=== PATIENT | female | born 1950 | race Two or more races ===

== ENCOUNTER 2025-02-22 06:50 | Day surgery (SDC) | payer OTHER ==
[~2025-02-22 06:50] MED LIST: SIMVASTATIN40 MG
[2025-02-22] MEDS ORDERED: fentaNYL CITRATE 50 MCG/ML AMPUL IV ONE (12:45)
[2025-02-22] MEDS ORDERED: DIPHENHYDRAMINE HCL 50 MG/ML VIAL 1ML IV ONE (12:45)
[2025-02-22] MEDS ORDERED: MIDAZOLAM HCL 2 MG/2 ML VIAL IV ONE (12:45)
== END 2025-02-22 13:15 | disposition home or self-care (01) ==
LOC: AMB-ENDOS 06:50 → CIR.AMB 06:50 → AMB-ENDOS 13:15 → CIR.AMB 14:00
PROVIDERS: ATTEND Surgery
DX: C18.6 Malignant neoplasm of descending colon (principal); K63.5 Polyp of colon; K57.30 Diverticulosis of large intestine without perforation or abscess without bleeding; K64.4 Residual hemorrhoidal skin tags; D12.2 Benign neoplasm of ascending colon

== ENCOUNTER 2025-03-13 09:49 | Outpatient (CLI) | payer OTHER ==
[~2025-03-13 09:49] MED LIST changes: -SIMVASTATIN40 MG; +SIMVASTATIN40 MG PO
== END 2025-03-13 09:54 | disposition home or self-care (01) ==
LOC: RAD 09:49
PROVIDERS: ATTEND Surgery
DX: C18.6 Malignant neoplasm of descending colon (principal); D12.2 Benign neoplasm of ascending colon; K63.5 Polyp of colon

== ENCOUNTER 2025-03-14 08:58 | Inpatient (IN) | payer OTHER ==
[~2025-03-14] VITALS: Ht 167.6 cm; Wt 65.3 kg
[2025-03-16] MEDS ORDERED: ONDANSETRON HCL 2 MG/ML VIAL IV ONE (02:55)
[2025-03-16] MEDS ORDERED: CEFTRIAXONE SODIUM 2,000 MG VIAL IV ONE (09:00)
[2025-03-16] MEDS ORDERED: METRONIDAZOLE/SODIUM CHLORIDE 500 MG/100 ML PIGGYBACK IV ONE (09:00)
[2025-03-16] MEDS ORDERED: LIDOCAINE HCL 1%/EPINEPHRINE 20ML VIAL IJ ONE (09:00)
[2025-03-16] MEDS ORDERED: BUPIVACAINE HCL/PF 0.25% 30ML VIAL InF ONE (09:00)
[2025-03-16] MEDS ORDERED: SUGAMMADEX SODIUM 200 MG/2 ML VIAL IV ONE (10:36)
[2025-03-16] MEDS ORDERED: LACTOBACILLUS ACIDOPHILUS 1 CAP CAP PO SCH (13:22)
[2025-03-16] MEDS ORDERED: TAMSULOSIN HCL 0.4 MG CAP PO SCH (13:22)
[2025-03-16] MEDS ORDERED: OxyCODONE HCL 5 MG TABLET (ROXICODONE) PO PRN (13:30)
[2025-03-16] MEDS ORDERED: ONDANSETRON HCL 2 MG/ML VIAL IV PRN (13:30)
[2025-03-16] MEDS ORDERED: MORPHINE SULFATE 4 MG/ML CARTRIDGE IV PRN (13:30)
[2025-03-16] MEDS ORDERED: RINGERS SOLUTION,LACTATED 1,000 ML IV SCH (13:30)
[2025-03-16] MEDS ORDERED: ONDANSETRON HCL 2 MG/ML VIAL ONE (14:49)
[2025-03-16] MEDS ORDERED: MORPHINE SULFATE 4 MG/ML VIAL IV ONE (15:00)
[2025-03-16 15:27] LABS: BASO % 0.3 % (0.1-1.2); EOS # 0.00 (0.04-0.54); EOS % 0.0 % (0.7-7.0); LYMPH # 0.89 (1.18-3.74); LYMPH % 22.5 % (19.3-53.1); MEAN PLATELET VOLUME 10.00 fl (9.4-12.4); MONO # 0.13 (0.24-0.82); MONO % 3.3 % (4.7-12.5); NEUT # 2.93 (1.56-6.13); NEUT % 73.9 % (34.0-71.1); RED CELL DISTRIBUTION WIDTH 12.9 % (11.6-14.4)
[2025-03-16 15:42] LABS: BUN CREA RATIO 14.0 (7.0-25.0); CREATININE SERUM 0.73 mg/dL (0.55-1.02); GFR 77.93; GLUCOSE FASTING 182.0 mg/dL (65-100); OSMOLALITY SERUM 285.0 MOSM/KG (275-295)
[2025-03-16] MEDS ORDERED: MAGNESIUM SULFATE IN WATER 4 GM/100 ML PIGGYBACK IV NR (16:20)
[2025-03-16] MEDS ORDERED: METRONIDAZOLE/SODIUM CHLORIDE 500 MG/100 ML PIGGYBACK IV SCH (17:00)
[2025-03-16] MEDS ORDERED: GABAPENTIN 300 MG CAPSULE PO SCH (17:00)
[2025-03-16] MEDS ORDERED: HYOSCYAMINE SULFATE 0.125 MG TAB.SUBL SL SCH (17:00)
[2025-03-16 17:39] VITALS: BP 121/72; O2SAT 95
[2025-03-16] MEDS ORDERED: ACETAMINOPHEN 500 MG GEL..CAP PO SCH (18:00)
[2025-03-16] MEDS ORDERED: CIPROFLOXACIN IN 5 % DEXTROSE 400 MG/200 ML PIGGYBAG IV SCH (21:00)
[2025-03-16] MEDS ORDERED: FAMOTIDINE/PF 20 MG/2 ML VIAL IV PUSH SCH (21:00)
[2025-03-17] VITALS (17 sets, daily range): BP systolic 50–129; BP diastolic 33–77; O2SAT 71–100
[2025-03-17] MEDS ORDERED: NOREPINEPHRINE BITARTRATE 1 MG/ML AMPUL IV ONE (08:49)
[2025-03-17] MEDS ORDERED: NOREPINEPHRINE BITARTRATE 1 MG/ML AMPUL IV SCH (09:00)
[2025-03-17 09:39] LABS: BASO % 0.0 % (0.1-1.2); EOS # 0.01 (0.04-0.54); EOS % 0.5 % (0.7-7.0); LYMPH # 0.34 (1.18-3.74); LYMPH % 16.3 % (19.3-53.1); MEAN PLATELET VOLUME 10.70 fl (9.4-12.4); MONO # 0.11 (0.24-0.82); MONO % 5.3 % (4.7-12.5); NEUT # 1.59 (1.56-6.13); NEUT % 76.5 % (34.0-71.1); RED CELL DISTRIBUTION WIDTH 13.3 % (11.6-14.4)
[2025-03-17 09:51] LABS: INR 1.36
[2025-03-17 10:18] LABS: ALT/SGPT 41.0 U/L (12-78); AST/SGOT 52.0 U/L (15-37); BILIRUBIN TOTAL 1.73 mg/dL (0.3-1.2); BUN CREA RATIO 8.0 (7.0-25.0); CREATININE SERUM 2.54 mg/dL (0.55-1.02); GFR 18.48; GLOBULINA 1.6 G/DL (2.4-3.5); GLUCOSE FASTING 110.0 mg/dL (65-100); OSMOLALITY SERUM 292.0 MOSM/KG (275-295)
[2025-03-17 10:58] LABS: ABG PH 7.374 (7.35-7.45); ABG PO2 54.8 mmHg (80-100); BICARBONATE 13.4 mmol/l (23-25); o2 46 %
[2025-03-17] MEDS ORDERED: PIPERACILLIN/TAZOBACTAM SODIUM 3.375 GM in 0.9 % SODIUM CHLORIDE 100 ML IV SCH (12:00)
[2025-03-17] MEDS ORDERED: POVIDONE-IODINE 118 ML BOTT TOP ONE (12:00)
[2025-03-17] MEDS ORDERED: LIDOCAINE HCL 1% 10ML VIAL ONE (12:00)
[2025-03-17] MEDS ORDERED: MIDAZOLAM HCL 100 MG in 0.9 % SODIUM CHLORIDE 100 ML IV SCH (14:30)
[2025-03-17] MEDS ORDERED: DEXTROSE 50 % IN WATER 0.5 G/ML VIAL IV ONE ×2 (15:14→20:20)
[2025-03-17] MEDS ORDERED: NOREPINEPHRINE BITARTRATE 8 MG in DEXTROSE 5 % IN WATER 250 ML IV SCH (15:30)
[2025-03-17] MEDS ORDERED: VASOPRESSIN 40 UNITS in 0.9 % SODIUM CHLORIDE 100 ML IV SCH (15:45)
[2025-03-17] MEDS ORDERED: MIDAZOLAM HCL 2 MG/2 ML VIAL IV PUSH ONE (15:45)
[2025-03-17] MEDS ORDERED: 0.9 % SODIUM CHLORIDE 1,000 ML IV SCH (15:45)
[2025-03-17] MEDS ORDERED: SODIUM BICARBONATE 50MEQ/50ML VIAL IV ONE ×2 (16:17→16:18)
[2025-03-17 16:27] LABS: ABG PO2 125.1 mmHg (80-100); BICARBONATE 12.2 mmol/l (23-25)
[2025-03-17 16:28] LABS: o2 100 %
[2025-03-17 16:29] LABS: ABG PH 7.189 (7.35-7.45)
[2025-03-17] MEDS ORDERED: PHENYLEPHRINE HCL 10 MG/ML AMPUL ONE (16:30)
[2025-03-17] MEDS ORDERED: SODIUM BICARBONATE 50MEQ/50ML VIAL IV NR (16:30)
[2025-03-17] MEDS ORDERED: SODIUM BICARBONATE 150 MEQ in DEXTROSE 5 % IN WATER 1,000 ML IV SCH (16:30)
[2025-03-17] MEDS ORDERED: PHENYLEPHRINE HCL 20 MG in 0.9 % SODIUM CHLORIDE 250 ML IV SCH (16:45)
[2025-03-17] MEDS ORDERED: POLYVINYL ALCOHOL 15 ML DROPS OP SCH (17:00)
[2025-03-17] MEDS ORDERED: ENOXAPARIN SODIUM 40 MG/0.4 ML SYRINGE SUBCUTANEO SCH (17:00)
[2025-03-17] MEDS ORDERED: CHLORHEXIDINE GLUCONATE 15ML BRUSH KIT MM SCH (17:00)
[2025-03-17] MEDS ORDERED: PIPERACILLIN/TAZOBACTAM SODIUM 2.25 GM in DEXTROSE 5 % IN WATER 50 ML IV SCH (18:34)
[2025-03-17 19:33] LABS: ABG PH 7.159 (7.35-7.45)
[2025-03-17 19:34] LABS: ABG PO2 55.8 mmHg (80-100); BICARBONATE 15.1 mmol/l (23-25); o2 100 %
[2025-03-17 21:56] LABS: URINE APPEARANCE Turbid; URINE BILIRRUBIN Small (NEGATIVE); URINE BLOOD Large; URINE COLOR Dark Yellow; URINE KETONE Trace (NEGATIVE); URINE LEUKOCYTE Small; URINE NITRATE Positive; URINE UROBILINOGEN 0.2 E.U./dl
[2025-03-17 22:00] LABS: URINE BACTERIA 4078.6 uL (0.0-1933); URINE CAST 1.46 uL (0.0-1.40); URINE EPITHELIAL CELLS 41.2 uL (0.0-38.8); URINE RBC 440.7 uL (0.0-20.8); URINE WBC 109.3 uL (0.0-23.2)
[2025-03-17 22:48] LABS: URINE GLUCOSE 100 MG/DL (NEGATIVE); URINE PROTEIN 300 (NEGATIVE); URINE YEAST FEW /hpf
[2025-03-17] MEDS ORDERED: ATROPINE SULFATE 0.1 MG/ML DISP.SYRIN IV ONE (23:45)
[2025-03-17] MEDS ORDERED: EPINEPHRINE HCL/PF 1 MG/ML AMPUL IV PUSH SCH (23:45)
[2025-03-18] MEDS ORDERED: ENOXAPARIN SODIUM 40 MG/0.4 ML SYRINGE SUBCUTANEO SCH (09:00)
[2025-03-18] MEDS ORDERED: FAMOTIDINE/PF 20 MG/2 ML VIAL IV PUSH SCH (09:00)
[2025-03-18] MEDS ORDERED: MEROPENEM 500 MG/VIAL VIAL IV SCH (10:57)
[2025-03-18] MEDS ORDERED: PIPERACILLIN/TAZOBACTAM SODIUM 2.25 GM in 0.9 % SODIUM CHLORIDE 50 ML IV SCH (12:00)
== END 2025-03-17 22:28 | disposition expired | DRG 329 ==
LOC: SURH 03-16 05:28 → O/R 03-16 05:28 → SURH 03-16 13:15 → ICU 03-17 13:16
PROVIDERS: Internal Medicine; ADMIT Surgery; ATTEND Surgery
PROC: 07BB4ZZ Excision of Mesenteric Lymphatic, Percutaneous Endoscopic Approach (ICD-10-PCS; 2025-03-16)
PROC: 0DBU4ZZ Excision of Omentum, Percutaneous Endoscopic Approach (ICD-10-PCS; 2025-03-16)
PROC: 0DNH4ZZ Release Cecum, Percutaneous Endoscopic Approach (ICD-10-PCS; 2025-03-16)
PROC: 8E0W4CZ Robotic Assisted Procedure of Trunk Region, Percutaneous Endoscopic Approach (ICD-10-PCS; 2025-03-16)
PROC: 0DTF4ZZ Resection of Right Large Intestine, Percutaneous Endoscopic Approach (ICD-10-PCS; principal; 2025-03-16 13:15)
PROC: 4A033R1 Measurement of Arterial Saturation, Peripheral, Percutaneous Approach (ICD-10-PCS; 2025-03-17)
PROC: 0BH17EZ Insertion of Endotracheal Airway into Trachea, Via Natural or Artificial Opening (ICD-10-PCS; 2025-03-17)
PROC: 5A1945Z Respiratory Ventilation, 24-96 Consecutive Hours (ICD-10-PCS; 2025-03-17)
PROC: 4A12X4Z Monitoring of Cardiac Electrical Activity, External Approach (ICD-10-PCS; 2025-03-17)
PROC: 30233N1 Transfusion of Nonautologous Red Blood Cells into Peripheral Vein, Percutaneous Approach (ICD-10-PCS; 2025-03-17)
DX: C18.2 Malignant neoplasm of ascending colon (principal); A41.9 Sepsis, unspecified organism; T81.19XA Other postprocedural shock, initial encounter; T81.12XA Postprocedural septic shock, initial encounter; T81.44XA Sepsis following a procedure, initial encounter; D62 Acute posthemorrhagic anemia; J95.89 Other postprocedural complications and disorders of respiratory system, not elsewhere classified; Z99.11 Dependence on respirator [ventilator] status; N17.9 Acute kidney failure, unspecified; Y65.8 Other specified misadventures during surgical and medical care; R09.02 Hypoxemia; I95.81 Postprocedural hypotension; T80.89XA Other complications following infusion, transfusion and therapeutic injection, initial encounter; T78.40XA Allergy, unspecified, initial encounter
CPT/HCPCS: 44204; 38570; 44180; 44213; 49255; 82805; 36600; 94002; 94003; 31500; 93228; 36430; S2900